=== PATIENT | male | born 1960 ===

== ENCOUNTER 2016-09-13 14:59 | Emergency (ER) | payer OTHER ==
[2016-09-13 15:05] VITALS: BP 135/73; PULSE 54; RESP 18; TEMP 98.2; O2SAT 99
--- NOTE | 2016-09-13 15:34 | ED PDOC ---
HPI: Back Time Seen by Provider: 09/13/16 15:30 Chief Complaint (Nursing): Back Pain Chief Complaint (Provider): Lower back pain History Per: Patient History/Exam Limitations: no limitations Onset/Duration Of Symptoms: Days Current Symptoms Are (Timing): Still Present Quality Of Discomfort: "Pain" Severity: Moderate Previous Symptoms: Prior Surgery (diskectomy) Associated Symptoms: None Exacerbating Factor(s): Movement Additional History Per: Patient Additional Complaint(s): The pt is a 56yo male, PMHx of LSpine sx in past, presents to the ED for evaluation of back pain radiating to his left leg for the past 2 days noted after lifting objects. No fall noted. Pt accompanied by partner at bedside who reports the pain is worse with movement and that the pt has not taken any medications for his symptoms. Pt denies problems with urinary or bowel retention. Pt currently offers no additional complaints. PMD: Dr. Torres Past Medical History Reviewed: Historical Data, Nursing Documentation, Vital Signs Vital Signs: Last Vital Signs Temp 98.2 F 09/13/16 15:03 Pulse 54 L 09/13/16 15:03 Resp 18 09/13/16 15:03 BP 135/73 09/13/16 15:03 Pulse Ox 99 09/13/16 15:03 - Medical History PMH: HTN - Surgical History Surgical History: Back Surgery - Family History Family History: States: Unknown Family Hx - Immunization History Hx Tetanus Toxoid Vaccination: No (unknown) - Home Medications Home Medications: Ambulatory Orders Medication Instructions Recorded Metoprolol Tartrate [Lopressor] 25 mg PO HS 10/12/14 Ibuprofen [Motrin] 600 mg PO Q6 PRN #20 tab 10/13/14 Oxycodone HCl/Acetaminophen 1 tab PO Q4 PRN #12 tab 10/13/14 [Percocet 325 mg-5 mg] Cephalexin [Keflex] 500 mg PO TID #21 tab 02/17/15 Ibuprofen [Motrin] 600 mg PO Q6H PRN #15 tab 02/17/15 Naproxen [Naprosyn Tab] 375 mg PO Q8 PRN #21 tab 09/13/16 diaZEpam [Valium] 5 mg PO Q8 #6 tab 09/13/16 - Allergies Allergies/Adverse Reactions: Allergies Allergy/AdvReac Type Severity Reaction Status Date / Time No Known Allergies Allergy Verified 10/12/14 18:55 Review of Systems ROS Statement: Except As Marked, All Systems Reviewed And Found Negative Musculoskeletal: Positive for: Back Pain, Leg Pain (radiating to lt leg form back pain) Physical Exam - Reviewed Nursing Documentation Reviewed: Yes Vital Signs Reviewed: Yes - Physical Exam Appears: Positive for: Well, Non-toxic, No Acute Distress Head Exam: Positive for: ATRAUMATIC, NORMAL INSPECTION, NORMOCEPHALIC Skin: Positive for: Normal Color Neck: Positive for: Normal Respiratory: Negative for: Respiratory Distress Extremity: Positive for: Other (5/5 motor strength left leg) Neurologic/Psych: Positive for: Alert, Oriented - ECG O2 Sat by Pulse Oximetry: 99 (RA) Pulse Ox Interpretation: Normal Medical Decision Making Medical Decision Making: Time: 1535 Impression: Lower back pain Plan: -- Toradol 60 mg IM Scribe Attestation: All records were documented by Antonietta Jin, acting as a Scribe for CORTEZ Cedeno. Provider Scribe Attestation: All medical record entries made by the Scribe were at my direction and personally dictated by me. I have reviewed the chart and agree that the record accurately reflects my personal performance of the history, physical exam, medical decision making, and the department course for this patient. I have also personally directed, reviewed, and agree with the discharge instructions and disposition. Disposition - Clinical Impression Clinical Impression: Back strain - Patient ED Disposition Is Patient to be Admitted: No - Disposition Disposition: Routine/Home Disposition Time: 15:57 Condition: FAIR Prescriptions: diaZEpam [Valium] 5 mg PO Q8 #6 tab Naproxen [Naprosyn Tab] 375 mg PO Q8 PRN #21 tab PRN Reason: Pain, Severe (8-10) Instructions: Back Pain (ED) Forms: [facility] ED School/Work Excuse Print Language: DANISH
== END 2016-09-13 16:41 | disposition home or self-care (01) ==
LOC: H.ER 14:59
DX: S39.012A Strain of muscle, fascia and tendon of lower back, initial encounter (principal); X50.9XXA Other and unspecified overexertion or strenuous movements or postures, initial encounter; Y92.89 Other specified places as the place of occurrence of the external cause; I10 Essential (primary) hypertension

== ENCOUNTER 2018-03-23 08:46 | Emergency (ER) | payer OTHER ==
[2018-03-23 08:54] VITALS: RESP 18; TEMP 97
[2018-03-23 08:55] VITALS: BMI 29.0
[2018-03-23 09:03] VITALS: O2SAT 98
[2018-03-23] MEDS ORDERED: Oxycodone/Acetaminophen 5/325 mg Tab PO ONE (09:38)
--- NOTE | 2018-03-23 09:55 | ED PDOC ---
Upper Extremity Pain/Injury Time Seen by Provider: 03/23/18 09:06 Chief Complaint (Nursing): Upper Extremity Problem/Injury Chief Complaint (Provider): Upper Extremity Problem/Injury History Per: Patient History/Exam Limitations: no limitations Onset/Duration Of Symptoms: Days (x 2 weeks) Current Symptoms Are (Timing): Still Present Quality: "Pain" Exacerbating Factor(s): Movement Additional Complaint(s): 58 year old male with HTN presents to the ED with left shoulder pain for 2 weeks. The pain is located on the top of the left shoulder and radiates down the arm. Patient is accompanied by his who is acting as bill clerk. He believes that he may have strained his arm. Denies chest pain, shortness of breath and weakness. PMD: Luna Torres Past Medical History Reviewed: Historical Data, Nursing Documentation, Vital Signs Vital Signs: Last Vital Signs Temp 97 F L 03/23/18 08:53 Pulse 61 03/23/18 08:53 Resp 18 03/23/18 08:53 BP 138/80 03/23/18 08:53 Pulse Ox 98 03/23/18 09:01 - Medical History PMH: HTN - Surgical History Surgical History: Back Surgery - Family History Family History: States: Unknown Family Hx - Immunization History Hx Tetanus Toxoid Vaccination: No (unknown) Hx Influenza Vaccination: No Hx Pneumococcal Vaccination: No - Home Medications Home Medications: Ambulatory Orders Medication Instructions Recorded Metoprolol Tartrate [Lopressor] 25 mg PO HS 10/12/14 Oxycodone HCl/Acetaminophen 1 tab PO Q4 PRN #12 tab 10/13/14 [Percocet 325 mg-5 mg] diaZEpam [Valium] 5 mg PO Q8 #6 tab 09/13/16 Ibuprofen [Motrin Tab] 600 mg PO Q6 PRN #20 tab 03/23/18 - Allergies Allergies/Adverse Reactions: Allergies Allergy/AdvReac Type Severity Reaction Status Date / Time No Known Allergies Allergy Verified 03/23/18 09:00 Review of Systems ROS Statement: Except As Marked, All Systems Reviewed And Found Negative Constitutional: Negative for: Weakness Cardiovascular: Negative for: Chest Pain Respiratory: Negative for: Shortness of Breath Musculoskeletal: Positive for: Shoulder Pain (left; raidates down arm) Physical Exam - Reviewed Nursing Documentation Reviewed: Yes Vital Signs Reviewed: Yes - Physical Exam Appears: Positive for: Non-toxic, No Acute Distress Head Exam: Positive for: ATRAUMATIC, NORMAL INSPECTION, NORMOCEPHALIC Skin: Positive for: Normal Color, Warm, Dry Eye Exam: Positive for: EOMI, Normal appearance, PERRL Neck: Positive for: Normal, Painless ROM, Supple Cardiovascular/Chest: Positive for: Regular Rate, Rhythm. Negative for: Murmur Respiratory: Positive for: Normal Breath Sounds. Negative for: Respiratory Distress Gastrointestinal/Abdominal: Positive for: Normal Exam, Soft. Negative for: Tenderness Extremity: Positive for: Normal ROM (slight pain on adduction of left arm). Negative for: Deformity, Swelling (or edema) Neurologic/Psych: Positive for: Alert, Oriented. Negative for: Motor/Sensory Deficits - ECG O2 Sat by Pulse Oximetry: 98 (RA) Pulse Ox Interpretation: Normal Medical Decision Making Medical Decision Makin Impression: left shoulder pain Initial Plan: --Percocet 1 tab PO --Motrin 600 mg PO --Left shoulder x-ray 10:19 X-ray FINDINGS: BONES: Normal. No fracture. JOINTS: Normal. Glenohumeral and acromioclavicular joints preserved. No osteoarthritis. SOFT TISSUES: Normal. OTHER FINDINGS: None. IMPRESSION: Normal radiographs of the left shoulder. 1202 Upon provider evaluation patient is medically stable, and requires no further treatment in the ED at this time. Patient will be discharged home. Scribe Attestation: Documented by Rosie Mancilla acting as a scribe for Diandra Chris MD Provider Scribe Attestation: All medical record entries made by the Scribe were at my direction and personally dictated by me. I have reviewed the chart and agree that the record accurately reflects my personal performance of the history, physical exam, medical decision making, and the department course for this patient. I have also personally directed, reviewed, and agree with the discharge instructions and disposition. Disposition - Clinical Impression Clinical Impression: Shoulder pain, acute - Patient ED Disposition Is Patient to be Admitted: No - Disposition Referrals: [facility] [Outside] Nila Pedro MD [Staff Provider] - Disposition Time: 12:05 Condition: IMPROVED Additional Instructions: follow up with orthopedist for further management for MRI and further evaluation within one week return to the ED with any worsening or concerning symptoms or if not improved Prescriptions: Ibuprofen [Motrin Tab] 600 mg PO Q6 PRN #20 tab PRN Reason: Pain, Moderate (4-7) Instructions: Shoulder Pain (DC) Forms: [facility] (Argentine), [facility] (Danish) Print Language: YORUBA
--- NOTE | 2018-03-23 10:22 | RAD ---
Date of service: 03/23/2018 PROCEDURE: Radiographs of the Left Shoulder HISTORY: l shoulder pain COMPARISON: No prior. FINDINGS: BONES: Normal. No fracture. JOINTS: Normal. Glenohumeral and acromioclavicular joints preserved. No osteoarthritis. SOFT TISSUES: Normal. OTHER FINDINGS: None. IMPRESSION: Normal radiographs of the left shoulder.
[2018-03-23 12:24] VITALS: BP 130/76; PULSE 68
== END 2018-03-23 12:23 | disposition home or self-care (01) ==
LOC: H.ER 08:46
DX: M25.512 Pain in left shoulder (principal); I10 Essential (primary) hypertension

== ENCOUNTER 2018-07-12 22:06 | Emergency (ER) | payer SELFPAY ==
[2018-07-12 22:06] VITALS: BMI 29.0
--- NOTE | 2018-07-12 23:58 | ED PDOC ---
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 Patient states pain started after pushing a car. Patient states ibuprofen helped with the pain but that he did not take any today. Patient states today he noted tactile fevers and headache. Denies neck pain, vision changes, ear pain, throat pain, cough, congestion, abdominal pain, vomiting/diarrhea, recent travel, sick contacts. No medications taken for relief today Past Medical History Reviewed: Historical Data, Nursing Documentation, Vital Signs Vital Signs: Last Vital Signs Temp 99.9 F H 07/12/18 22:30 Pulse 92 H 07/12/18 22:30 Resp 16 07/12/18 22:30 BP 147/84 07/12/18 22:30 Pulse Ox 95 07/12/18 22:30 - Medical History PMH: Back Problems, HTN (takes metoprolol) - Surgical History Surgical History: Back Surgery - Family History Family History: States: Unknown Family Hx - Immunization History Hx Tetanus Toxoid Vaccination: No (unknown) Hx Influenza Vaccination: No Hx Pneumococcal Vaccination: No - Home Medications Home Medications: Ambulatory Orders Medication Instructions Recorded Metoprolol Tartrate [Lopressor] 25 mg PO HS 10/12/14 Oxycodone HCl/Acetaminophen 1 tab PO Q4 PRN #12 tab 10/13/14 [Percocet 325 mg-5 mg] diaZEpam [Valium] 5 mg PO Q8 #6 tab 09/13/16 Ibuprofen [Motrin Tab] 600 mg PO Q6 PRN #20 tab 03/23/18 Cyclobenzaprine [Cyclobenzaprine 10 mg PO BID PRN #14 tab 07/13/18 HCl] Ibuprofen [Motrin Tab] 1 tab PO Q6 PRN #20 tab 07/13/18 Lidocaine 5% [Lidoderm] 1 patch TOP DAILY PRN #7 patch 07/13/18 - Allergies Allergies/Adverse Reactions: Allergies Allergy/AdvReac Type Severity Reaction Status Date / Time No Known Allergies Allergy Verified 03/23/18 09:00 Review of Systems ROS Statement: Except As Marked, All Systems Reviewed And Found Negative Constitutional: Positive for: Fever Musculoskeletal: Positive for: Back Pain Physical Exam - Reviewed Nursing Documentation Reviewed: Yes Vital Signs Reviewed: Yes - Physical Exam Appears: Positive for: Well, Non-toxic, No Acute Distress Head Exam: Positive for: ATRAUMATIC, NORMAL INSPECTION, NORMOCEPHALIC Skin: Positive for: Normal Color Eye Exam: Positive for: Normal appearance ENT: Positive for: Normal ENT Inspection Neck: Positive for: Normal, Painless ROM Cardiovascular/Chest: Positive for: Regular Rate, Rhythm Respiratory: Positive for: Normal Breath Sounds Back: Positive for: Vertebral Tenderness (diffuse lspine tenderness), Muscle Spasm (bilateral lspine paravertebral tenderness). Negative for: L CVA Tenderness, R CVA Tenderness, Decreased ROM Extremity: Positive for: Normal ROM Neurological/Psych: Positive for: Awake, Alert, Oriented (x3) - ECG O2 Sat by Pulse Oximetry: 95 - Other Rad lspine xray X-Ray: Viewed By Oh X-Ray Interpretation: no acute findings - Progress ED Course And Treament: -xray lspine -influenza -udip -Toradol IM -flexeril PO -Tylenol PO Patient states he is feeling better on re-eval. Patient educated on findings, discharged with rx ibuprofen, flexeril, lidoderm Advised follow up with PMD within 2-3 days Return precautions given Disposition - Clinical Impression Clinical Impression: Low back pain - Patient ED Disposition Is Patient to be Admitted: No Counseled Patient/Family Regarding: Studies Performed, Diagnosis, Need For Followup, Rx Given - Disposition Disposition: Routine/Home Disposition Time: 01:45 Condition: IMPROVED Prescriptions: Cyclobenzaprine [Cyclobenzaprine HCl] 10 mg PO BID PRN #14 tab PRN Reason: Muscle Spasm Ibuprofen [Motrin Tab] 1 tab PO Q6 PRN #20 tab PRN Reason: Pain, Moderate (4-7) Lidocaine 5% [Lidoderm] 1 patch TOP DAILY PRN #7 patch PRN Reason: Pain, Moderate (4-7) Instructions: Low Back Pain in Adults, Fever, Adult (DC) Print Language: ARMENIAN
[2018-07-13 01:47] VITALS: BP 138/89; PULSE 85; RESP 18; TEMP 99.1; O2SAT 97
--- NOTE | 2018-07-13 14:47 | RAD ---
Date of service: 07/13/2018 PROCEDURE: Radiographs of the Lumbar Spine. HISTORY: Back Pain. No history of recent/ related trauma provided. COMPARISON: No prior. TECHNIQUE: 5 views obtained. FINDINGS: BONES: Normal alignment. No listhesis. No fracture. DISC SPACES: Unremarkable. OTHER FINDINGS: None. IMPRESSION: Unremarkable radiographs of the lumbar spine.
== END 2018-07-13 01:59 | disposition home or self-care (01) ==
LOC: H.ER 22:06
DX: M54.5 Low back pain (principal); I10 Essential (primary) hypertension
CPT/HCPCS: 72100; 87804; 96372; J1885

== ENCOUNTER 2018-07-17 00:43 | Emergency (ER) | payer SELFPAY ==
[2018-07-17 00:51] VITALS: BMI 28.4
[2018-07-17 01:26] VITALS: RESP 18
[2018-07-17 02:26] LABS: URINE BILIRUBIN NEGATIVE (NEGATIVE); URINE BLOOD NEGATIVE (NEGATIVE); URINE CLARITY SLIGHTY-CLOUDY (Clear); URINE COLOR YELLOW (YELLOW); URINE GLUCOSE (UA) NEG (NEGATIVE); URINE LEUKOCYTE ESTERASE NEG Leu/uL (Negative); URINE PROTEIN NEGATIVE (NEGATIVE); URINE UROBILINOGEN 0.2-1.0 mg/dL (0.2-1.0)
[2018-07-17 03:02] LABS: BASO % 0.7 % (0.0-2.0); EOS # 0.1 K/uL (0.0-0.7); EOS % 1.9 % (0.0-4.0); HEMOGLOBIN 16.5 g/dL (12.0-18.0); LYMPH # 1.4 K/uL (1.0-4.3); LYMPH % 29.1 % (20.0-40.0); MEAN CELL VOLUME 92.9 fl (80.0-94.0); MEAN CORPUSCULAR HEMOGLOBIN 31.7 pg (27.0-31.0); MEAN CORPUSCULAR HGB CONC 34.1 g/dL (33.0-37.0); MEAN PLATELET VOLUME 10.9 fl (7.2-11.7); MONO # 0.4 K/uL (0.0-0.8); MONO % 9.3 % (0.0-10.0); NEUT # 2.7 K/uL (1.8-7.0); NRBC % 0.1 % (0.0-0.0); RBC 5.22 Mil/uL (4.40-5.90); RED CELL DISTRIBUTION WIDTH 13.8 % (11.5-14.5); WHITE BLOOD COUNT 4.7 K/uL (4.8-10.8)
[2018-07-17 03:03] LABS: BARBITURATES, UR NEGATIVE (NEGATIVE); BENZODIAZEPINES, UR NEGATIVE (NEGATIVE); OPIATES, UR NEGATIVE (NEGATIVE); PHENCYCLIDINE, UR NEGATIVE (NEGATIVE)
[2018-07-17 03:09] LABS: BLOOD UREA NITROGEN 17 mg/dl (9-20); CALCIUM 8.7 mg/dL (8.4-10.2); GFR NON-AFRICAN AMERICAN > 60
--- NOTE | 2018-07-17 03:17 | ED PDOC ---
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 states for over a week he's had atraumatic non-radiating lower back pain. Pt. was initially seen here and had x-rays of the LS spine done and was subsequently discharged with Rx for ibuprofen and muscle relaxer which has provided minimal relief. Also reports having fever throughout this episode. Further reports pt. is having a headache for a week. Headache is gradual in onset and started on his forehead and radiates to his neck. Yesterday at 2200 pt. had a fever of 101 (forehead thermometer) prompting them to come to ED. States he last took ibuprofen at 1900 yesterday and has not take any other meds sicne. Further states he has not taken any meds for his fever. Denies cough, congestion, N/V/D, dysuria, hematuria, incontinence, saddle paresthesias, traum a, chest pain, SOB, weakness, rash. Past Medical History Reviewed: Historical Data, Nursing Documentation, Vital Signs Vital Signs: Last Vital Signs Temp 98.7 F 07/17/18 00:53 Pulse 85 07/17/18 01:25 Resp 18 07/17/18 01:25 BP 133/70 07/17/18 01:25 Pulse Ox 100 07/17/18 01:25 - Medical History PMH: Back Problems (3 DISCS REMOVED), HTN (takes metoprolol) - Surgical History Surgical History: Back Surgery (3 DISCS REMOVED 2011) - Family History Family History: States: No Known Family Hx - Living Arrangements Living Arrangements: With Family - Social History Drugs: Denies - Immunization History Hx Tetanus Toxoid Vaccination: No (unknown) Hx Influenza Vaccination: No Hx Pneumococcal Vaccination: No - Home Medications Home Medications: Ambulatory Orders Medication Instructions Recorded Metoprolol Tartrate [Lopressor] 25 mg PO HS 10/12/14 Oxycodone HCl/Acetaminophen 1 tab PO Q4 PRN #12 tab 10/13/14 [Percocet 325 mg-5 mg] diaZEpam [Valium] 5 mg PO Q8 #6 tab 09/13/16 Ibuprofen [Motrin Tab] 600 mg PO Q6 PRN #20 tab 03/23/18 Cyclobenzaprine [Cyclobenzaprine 10 mg PO BID PRN #14 tab 07/13/18 HCl] Ibuprofen [Motrin Tab] 1 tab PO Q6 PRN #20 tab 07/13/18 Lidocaine 5% [Lidoderm] 1 patch TOP DAILY PRN #7 patch 07/13/18 Methocarbamol [Robaxin] 500 mg PO TID PRN #12 tab 07/17/18 Naproxen [Naprosyn] 500 mg PO BID PRN #10 tab 07/17/18 - Allergies Allergies/Adverse Reactions: Allergies Allergy/AdvReac Type Severity Reaction Status Date / Time No Known Allergies Allergy Verified 07/17/18 00:53 Review of Systems ROS Statement: Except As Marked, All Systems Reviewed And Found Negative Musculoskeletal: Positive for: Neck Pain, Back Pain Neurological: Positive for: Headache Physical Exam - Physical Exam Appears: Positive for: Well, Non-toxic, No Acute Distress Head Exam: Positive for: ATRAUMATIC, NORMAL INSPECTION, NORMOCEPHALIC Skin: Positive for: Normal Color, Warm. Negative for: Rash Eye Exam: Positive for: EOMI, Normal appearance, PERRL ENT: Positive for: Normal ENT Inspection Neck: Positive for: Normal, Painless ROM, Supple. Negative for: Decreased ROM Cardiovascular/Chest: Positive for: Regular Rate, Rhythm Respiratory: Positive for: Normal Breath Sounds. Negative for: Respiratory Distress Gastrointestinal/Abdominal: Positive for: Normal Exam, Soft. Negative for: Tenderness Back: Positive for: Normal Inspection, Muscle Spasm (b/l paralumbar tenderness). Negative for: L CVA Tenderness, R CVA Tenderness, Vertebral Tenderness Extremity: Positive for: Normal ROM Neurological/Psych: Positive for: Awake, Alert, Oriented (x3), Gait (steady, unassisted), Other (equal health tech strenght b/l; b/l lower extremity streght 5/5) - Laboratory Results Result Diagrams: 07/17/18 02:57 07/17/18 05:10 Lab Results: Urine Color Yellow (YELLOW) 07/17/18 02:20 Urine Clarity Slighty-cloudy (Clear) 07/17/18 02:20 Urine pH 6.0 (5.0-8.0) 07/17/18 02:20 Ur Specific [place] 1.020 (1.003-1.030) 07/17/18 02:20 Urine Protein Negative mg/dL (NEGATIVE) 07/17/18 02:20 Urine Glucose (UA) Neg mg/dL (NEGATIVE) 07/17/18 02:20 Urine Ketones Negative mg/dL (NEGATIVE) 07/17/18 02:20 Urine Blood Negative (NEGATIVE) 07/17/18 02:20 Urine Nitrate Negative (NEGATIVE) 07/17/18 02:20 Urine Bilirubin Negative (NEGATIVE) 07/17/18 02:20 Urine Urobilinogen 0.2-1.0 mg/dL (0.2-1.0) 07/17/18 02:20 Ur Leukocyte Esterase Neg Domenica/uL (Negative) 07/17/18 02:20 Urine RBC (Auto) 1 /hpf (0-3) 07/17/18 02:20 Urine Microscopic WBC 1 /hpf (0-5) 07/17/18 02:20 - ECG O2 Sat by Pulse Oximetry: 100 - Progress ED Course And Treament: Labs, CT head w/o contrast ordered. Re-evaluation Time: 06:04 (Headache and back pain have both improved. Repeat neuro exam is non-focal. Advised to f/u with PMD for further evaluation but is to return to ED immediately if symptoms worsen. ) Condition: Re-examined, Improved Medical Decision Making Medical Decision Makin:20 CT Head FINDINGS: BRAIN No acute intraparenchymal hemorrhage. No mass lesion. No CT evidence for acute t erritorial infarct. No midline shift or extra-axial collections. VENTRICLES: No hydrocephalus. ORBITS: The orbits are unremarkable. SINUSES AND MASTOIDS: The paranasal sinuses and mastoid air cells are clear. BONES: No fracture. SOFT TISSUES: Unremarkable. IMPRESSION: No acute intracranial abnormality. Disposition - Clinical Impression Clinical Impression: Headache, Low back pain - Patient ED Disposition Is Patient to be Admitted: No - Disposition Referrals: [facility] [Outside] Disposition: Routine/Home Disposition Time: 06:05 Condition: IMPROVED Additional Instructions: FOLLOW UP WITH YOUR DOCTOR FOR FURTHER EVALUATION RETURN TO ED IMMEDIATELY IF SYMPTOMS WORSEN RENETTA KO, thank you for letting us take care of you today. Your provider was Diandra Chris MD and you were treated for FEVER, NECK/BACK PAIN. The emergency medical care you received today was directed at your acute symptoms. If you were prescribed any medication, please fill it and take as directed. It may take several days for your symptoms to resolve. Return to the Emergency Department if your symptoms worsen, do not improve, or if you have any other problems. Please contact your doctor or call one of the physicians/clinics you have been referred to that are listed on the Patient Visit Information form that is included in your discharge packet. Bring any paperwork you were given at discharge with you along with any medications you are taking to your follow up visit. Our treatment cannot replace ongoing medical care by a primary care provider outside of the emergency department. Thank you for allowing the [facility] team to be part of your care today. If you had an X-Ray or CT scan: A Radiologist will review the ED reading if any change in treatment is needed we will contact you. If you had a blood, urine, or wound culture: It will take several days for the results, if any change in treatment is needed we will contact you. If you had an STI test: It will take 48 hours for the results. Please call after 1 week if you have not heard back. Prescriptions: Methocarbamol [Robaxin] 500 mg PO TID PRN #12 tab PRN Reason: Muscle Spasm Naproxen [Naprosyn] 500 mg PO BID PRN #10 tab PRN Reason: Pain Instructions: Low Back Pain (DC), Headache, Adult (DC) Forms: [facility] (Swedish) Print Language: WOLOF
[2018-07-17 03:20] LABS: ALB/GLOB RATIO 1.2 (1.0-2.1); ALBUMIN 4.6 g/dL (3.5-5.0); ALT/SGPT 14 U/L (21-72); AST/SGOT 46 U/L (17-59)
[2018-07-17 05:30] VITALS: O2SAT 100
[2018-07-17] MEDS ORDERED: Sodium Chloride 0.9% 1,000 ML IV STA (05:34)
[2018-07-17 05:39] LABS: ALB/GLOB RATIO 1.1 (1.0-2.1); ALT/SGPT 38 U/L (21-72); AST/SGOT 23 U/L (17-59); BLOOD UREA NITROGEN 15 mg/dl (9-20); CALCIUM 8.8 mg/dL (8.4-10.2); GFR NON-AFRICAN AMERICAN > 60
[2018-07-17 06:39] VITALS: BP 133/72; PULSE 69; TEMP 99
--- NOTE | 2018-07-17 11:25 | CT ---
Date of service: 07/17/2018 PROCEDURE: CT HEAD WITHOUT CONTRAST. HISTORY: headache COMPARISON: None available. TECHNIQUE: Axial computed tomography images were obtained through the head/brain without intravenous contrast. Supplemental Coronal and Sagittal projections created and reviewed. Radiation dose: Total exam DLP = <inf_radiation_dlp> mGy-cm. This CT exam was performed using one or more of the following dose reduction techniques: Automated exposure control, adjustment of the mA and/or kV according to patient size, and/or use of iterative reconstruction technique. FINDINGS: HEMORRHAGE: No intracranial hemorrhage. BRAIN: No mass effect or edema. No atrophy or chronic microvascular ischemic changes. VENTRICLES: Unremarkable. No hydrocephalus. CALVARIUM: Unremarkable. PARANASAL SINUSES: Unremarkable as visualized. No significant inflammatory changes. MASTOID AIR CELLS: Unremarkable as visualized. No inflammatory changes. OTHER FINDINGS: None. IMPRESSION: No acute intracranial abnormalities. No significant findings to account for the clinical presentation. Concordant results (preliminary interpretation) provided by [employer]. Procedure Completed: 02:45 Preliminary Report: Interpreted and electronically signed: 05:20 Final Interpretation: 11:22
== END 2018-07-17 06:38 | disposition home or self-care (01) ==
LOC: H.ER 00:43
DX: R51 Headache (principal); M54.5 Low back pain; I10 Essential (primary) hypertension
CPT/HCPCS: 70450; 80053; 80324; 80345; 80346; 80349; 80353; 80358; 80361; 81003; 83992; 85025; 85651; 87040; 87086; 96361; 96374; 99285; J1885; J7030